=== PATIENT | male | born 1965 | race Caucasian/White ===

== ENCOUNTER 2020-07-10 10:48 | Emergency (ER) | payer BC ==
--- NOTE | 2020-07-10 10:55 | NUR ---
PATIENT LEFT WITHOUT BEING TRIAGED. WILL GO SEE THEIR PRIMARY CARE PHYSICIAN FIRST.
== END 2020-07-10 10:55 | disposition left against medical advice (07) ==
LOC: MED 10:48
DX: Z53.21 Procedure and treatment not carried out due to patient leaving prior to being seen by health care provider (principal)